=== PATIENT | female | born 1960 | race Caucasian/White ===

== ENCOUNTER 2017-01-14 12:00 | Emergency (ER) | payer OTHER ==
[~2017-01-14] VITALS: Ht 157.5 cm; Wt 67.0 kg
[2017-01-14 12:02] VITALS: Ht 157.5 cm; Wt 67.0 kg
[2017-01-14] MEDS ORDERED: KETOROLAC 30 MG INJ IM STA (12:53)
--- NOTE | 2017-01-14 12:53 | ERD ---
ER Documentation Chief Complaint Date/Time DATE: 01/14/17 TIME: 12:48 Chief Complaint Complains of left leg pain x 1 week HPI 56-year-old female who presents to the emergency room for left leg pain for about a week. Pain was described as sharp/achy with a rate of 10/10 and worse on movement. Patient also stated that she has difficulty walking due to her left leg pain. Stated it is more located to her left femoral area. Denies headache, loss of consciousness, dizziness, blurry vision, changes in vision, photophobia, facial pain, ear pain, throat pain, difficulty swallowing, neck pain, shoulder pain, chest pain, cough, hemoptysis, abdominal pain, back pain, loss of appetite, nausea, vomiting, hematochezia, diarrhea, constipation, urinary symptoms, , the possibility of being , bladder and bowel incontinences, injury, falls, direct trauma, numbness or tingling sensation, difficulty walking, recent travel, recent exposure to illness, recent antibiotic use in the last 3 months, fever, chills. Allergy: Codeine. PMH: Asthma, high cholesterol, hypertension. Family medical history: Denies. Medications: Advair Diskus. Surgery: . Primary Social History: Not working at this time. Denies smoking, use of alcohol, use of illegal drugs. ROS All systems reviewed and are negative except as per history of present illness. Allergies Allergies: Coded Allergies: codeine (Verified Allergy, Intermediate, rash and vomiting, 01/14/17) PMhx/Soc Medical and Surgical Hx: pt denies Medical Hx, pt denies Surgical Hx Physical Exam Vitals Vital Signs Date Time Temp Pulse Resp B/P Pulse Ox O2 Delivery O2 Flow Rate FiO2 01/14/17 12:02 70 20 123/60 98 Physical Exam CONSTITUTIONAL: Well-appearing; well-nourished; in no apparent distress. HEAD: Normocephalic; atraumatic. EYES: Conjunctiva clear, sclera non-icteric, EOM intact. PERRL Ears: Hearing intact. EACs clear, TMs non-bulging, non-inflamed, translucent & mobile, ossicles normal appearance, No obstructions, no erythema, no discharges Nose: No obstructions. No polyps. No external lesions. Mucosa non-inflamed. No external lesions, septum and turbinates normal. No rhinorrhea. No discharges. Frontal sinus is non-tender to palpation. Maxillary sinus is non-tender to palpation. MOUTH: Moist mucous membranes, no lesion, no obstructions, no vesicles, no thrush, patent airway Throat: Uvula in midline. Right tonsil is +1 with no erythema, no exudate. Left tonsil is +1 with no erythema, no exudate. Tolerating secretions well. Good gag reflex. Patent airway. Neck: Supple, without lesions, bruits, or adenopathy. No mass. Thyroid non- enlarged and non-tender to palpation. CHEST: Symmetrical chest. Respirations even and not labored. No retractions noted. CARDIOVASCULAR: Normal S1, S2. RRR. No murmurs, gallops. RESPIRATORY: Normal chest excursion with respiration; breath sounds clear and equal bilaterally; no wheezes, rhonchi, or rales. Breathing even and unlabored. Speaking in clear, full, and complete sentences w/ ease. ABDOMEN: Normal bowel sounds normal. Soft, round, non-distended, non-guarding, no tenderness, no rebound, no organomegaly, no masses, no pulsating abdominal mass. No hernia. No peritoneal signs. : No CVA tenderness. BACK: Symmetrical shoulder. Spine is midline without deformity, tenderness. No evidence of trauma or deformity. PELVIS: Stable pelvis. No evidence of trauma or deformity. MUSCULOSKELETAL: Normal gait and station. No misalignment, asymmetry, crepitation, defects, tenderness, masses, effusions, decreased range of motion, instability, atrophy or abnormal strength or tone in the head, neck, spine, ribs , pelvis or extremities except left femoral area has pain on palpation to anterior and posterior without obvious swelling/deformity. Bilateral hips are stable with good range of motion. Bilateral knees are unremarkable. Bilateral ankle and foot are unremarkable. Good and full range of motion of neck and spine without difficulty/discomfort. No calf tenderness. NEUROVASCULAR: Distal pulses are present. Pedal pulse are present, equal, and normal. Capillary refills are < 2 seconds. NEUROLOGIC: Alert and oriented x4. Speaks full and clear sentences. Cranial Nerves II-XII normal. Sensation to pain, touch, and proprioception normal. Grossly unremarkable. No neurologic deficits. Romberg test is negative. PSYCHOLOGICAL: The patients mood and manner are appropriate. No hallucinations , delusions. Not SI. Not HI. Has the capacity to decide for self SKIN: Normal for age and ethnicity; warm; dry; good turgor; no apparent lesions or exudates. No rashes, hives, discoloration. Intact. Results 24 hrs Current Medications Medications (Trade) Dose Ordered Sig/Levi Route PRN Reason Start Time Stop Time Status Last Admin Dose Admin Ketorolac Tromethamine (Toradol) 30 mg ONCE STAT IM 01/14/17 12:53 01/14/17 12:55 DC 01/14/17 13:16 Procedures/MDM Examination: Please see physical examination. Disease process, medical treatment was explained to the patient and family member. They verbalized understanding and agreed with the medical treatment, and follow-up care. Radiology: X-ray of left femur Impression: No acute osseous abnormality. Benign sclerotic lesion of the distal femur most likely representing a benign chondroid lesion versus less likely a chronic bone infarct. Ultrasound of lower extremity venous left lower extremity. Impression: No sonographic evidence for deep venous thrombosis in the left lower extremity. Treatment: Toradol IM. Re-evaluation: Denies pain. Consultation: None. Differential diagnosis: Fracture versus dislocation versus contusion versus sprain versus sciatica Medical decision makin-year-old female who presents to the emergency room for left leg pain for about a week. Pain was described as sharp/achy with a rate of 10/10 and worse on movement. Patient also stated that she has difficulty walking due to her left leg pain. Stated it is more located to her left femoral area. Patient's complaint, patient's history about her complaint, my physical findings, diagnostic test results are consistent with my final diagnosis of left leg pain, sciatica. Medications prescribed are the following: Flexeril. Patient and family member are made aware of the side effects and adverse reactions of the medications prescribed. Instructed on when to seek emergent and medical attention in case allergic/anaphylactic reactions or severe side effects and or adverse reactions to medications. Patient and family member verbalized understanding. Patient instructed Instructed to follow-up with his PCP in 24-48 hours. Instructed to Call 911 for chest pain, shortness of breath. Advised to come back here in ED as soon as possible for severity of symptoms which includes but not limited to: any new symptoms; shortness of breath/difficulty of breathing; cardiovascular changes; severe gastrointestinal symptoms; signs and symptoms of bleeding and or infection; signs of compartment syndrome/neurovascular changes; neurological changes/deficits. Patient and family member verbalized understanding. Upon discharge, patient is alert and oriented x 4, speaks full and clear sentences, denies pain, has no neurological deficits, has no neurovascular deficits, difficulty of breathing. Breathing even and unlabored. Lung sounds are clear to auscultation. Not in distress. Appears comfortable. Ambulatory with steady gait. Appears satisfied with care provided here in ED. Departure Diagnosis: Primary Impression: Pain of left leg Condition: Good Additional Instructions: Patient instructed Instructed to follow-up with his PCP in 24-48 hours. Instructed to Call 911 for chest pain, shortness of breath. Advised to come back here in ED as soon as possible for severity of symptoms which includes but not limited to: any new symptoms; shortness of breath/difficulty of breathing; cardiovascular changes; severe gastrointestinal symptoms; signs and symptoms of bleeding and or infection; signs of compartment syndrome/neurovascular changes; neurological changes/deficits. Patient and family member verbalized understanding. MERCY THORNTON Jan 14, 2017 12:53
--- NOTE | 2017-01-14 13:23 | RADRPT ---
PROCEDURE: XR Femur. CLINICAL INDICATION: Generalized pain TECHNIQUE: AP and lateral views of the left femur were obtained. COMPARISON: No prior studies are available for comparison. FINDINGS: There is normal mineralization and alignment. No fracture or osseous lesion is identified. There are normal joints without evidence of arthritis or effusion. There is a small, well-defined sclerotic l esion of the distal femoral metadiaphysis most likely representing a benign chondroid lesion or less likely a bone infarct. The soft tissues are unremarkable. IMPRESSION: 1. No acute osseous abnormality. 2. Benign sclerotic lesion of the distal femur most likely representing a benign chondroid lesion v ersus less likely a chronic bone infarct. RPTAT: QQ .Shaun Alanis MD, MD Date Time Electronically viewed and signed by .Shaun Alanis MD, MD on 01/14/2017 13:23 .d/
--- NOTE | 2017-01-14 14:27 | RADRPT ---
PROCEDURE: US Lower extremity Venous. CLINICAL INDICATION: Rule out DVT TECHNIQUE: Multiple sonographic images of the left lower extremity deep venous system was obtained utilizing grayscale, color-flow, compressive sonography and doppler imaging with augmentation. The images were reviewed on a PACS workstation. COMPARISON: None. FINDINGS: There is normal compressibility and flow within the left common femoral, deep femoral, superficial f emoral and popliteal veins. The deep veins the calf were incompletely visualized. IMPRESSION: No sonographic evidence for deep venous thrombosis in the left lower extremity. Physician Trevor Date Time Electronically viewed and signed by Physician Trevor on 01/14/2017 14:22 ML/
[2017-01-14] MEDS ORDERED: CYCL-319 PO (15:48)
[2017-01-14] MEDS ORDERED: IBUP-1542 PO (15:54)
== END 2017-01-14 16:02 | disposition home or self-care (01) ==
LOC: FTE 12:00
DX: M79.662 Pain in left lower leg (principal); J45.909 Unspecified asthma, uncomplicated; I10 Essential (primary) hypertension
CPT/HCPCS: 73550; 93971; 96372; J1885; Z7502

== ENCOUNTER 2017-04-11 17:04 | Emergency (ER) | payer OTHER ==
[~2017-04-11] VITALS: Ht 157.5 cm; Wt 67.0 kg
[~2017-04-11 17:04] MED LIST: CYCL-319 PO; IBUP-1542 PO
[2017-04-11 17:11] VITALS: Ht 157.5 cm; Wt 67.0 kg
--- NOTE | 2017-04-11 21:13 | ERA ---
ER Documentation Chief Complaint Date/Time DATE: 04/11/17 TIME: 21:13 Chief Complaint Dizziness HPI The patient is a 56-year-old female, presenting to the ER because of dizziness that began about 3 AM today, she feels as if the room is spinning, complains of nausea but no vomiting and as if her left face is numb for 1 day. She denies fever, chills, syncope, near syncope, seizure, facial pain, neck pain, chest pain, dyspnea, abdominal pain, vomiting, dysuria, diarrhea. She does not smoke nor drink Past medical history: Dyslipidemia Past surgical history: 3 , bilateral carpal tunnel surgery ROS All systems reviewed and are negative except as per history of present illness. Medications Home Meds Active Scripts Ondansetron (Ondansetron Odt) 4 Mg Tab.rapdis, 4 MG PO Q6H Y for NAUSEA AND/OR VOMITING, #10 TAB Prov:TREVIN HUGGINS MD 04/11/17 Meclizine Hcl* (Meclizine Hcl*) 25 Mg Tablet, 25 MG PO TID, #14 TAB Prov:TREVIN HUGGINS MD 04/11/17 Ibuprofen* (Motrin*) 600 Mg Tab, 600 MG PO Q6H Y for PAIN AND OR ELEVATED TEMP, #30 TAB Prov:MERCY THORNTON 01/14/17 Cyclobenzaprine Hcl* (Cyclobenzaprine Hcl*) 10 Mg Tablet, 10 MG PO BID Y for PAIN, #15 TAB Prov:MERCY THORNTON F 01/14/17 Allergies Allergies: Coded Allergies: codeine (Verified Allergy, Intermediate, rash and vomiting, 01/14/17) Physical Exam Vitals Vital Signs Date Time Temp Pulse Resp B/P Pulse Ox O2 Delivery O2 Flow Rate FiO2 04/11/17 21:40 98.0 86 17 101/65 Room Air 04/11/17 17:11 98.5 61 18 139/64 99 Physical Exam Const: No acute distress. Head: Atraumatic. Eyes: Normal Conjunctiva. ENT: Normal External Ears, Nose and Mouth. Neck: Full range of motion. No meningismus. Resp: Clear to auscultation bilaterally. Cardio: Regular rate and rhythm. Abd: Soft, non distended, normal bowel sounds, non tender. Skin: No petechiae or rashes. Back: No midline or flank tenderness. Ext: No cyanosis, or edema. Neur: Awake and alert. No focal deficit Psych: Normal Mood and Affect. Result Diagram: 04/11/17212404/11/172124 Results 24 hrs Laboratory Tests Test 04/11/17 21:25 White Blood Count 9.110^3/ul Red Blood Count 4.4810^6/ul Hemoglobin 12.4g/dl Hematocrit 37.9% Mean Corpuscular Volume 84.6fl Mean Corpuscular Hemoglobin 27.7pg Mean Corpuscular Hemoglobin Concent 32.7g/dl Red Cell Distribution Width 13.7% Platelet Count 15614^3/UL Mean Platelet Volume 10.6fl Neutrophils % 56.2% Lymphocytes % 25.1% Monocytes % 7.5% Eosinophils % 10.2% Basophils % 0.7% Nucleated Red Blood Cells % 0.0/100WBC Neutrophils # 5.110^3/ul Lymphocytes # 2.310^3/ul Monocytes # 0.710^3/ul Eosinophils # 0.910^3/ul Basophils # 0.110^3/ul Nucleated Red Blood Cells # 0.010^3/ul Prothrombin Time 12.3Sec Prothrombin Time Ratio 1.0 INR International Normalized Ratio 0.91 Activated Partial Thromboplast Time 26.4Sec Sodium Level 142mmol/L Potassium Level 3.3mmol/L Chloride Level 102mmol/L Carbon Dioxide Level 26mmol/L Anion Gap 17 Blood Urea Nitrogen 16mg/dl Creatinine 0.63mg/dl Glucose Level 104mg/dl Calcium Level 9.9mg/dl Current Medications Medications (Trade) Dose Ordered Sig/Levi Route PRN Reason Start Time Stop Time Status Last Admin Dose Admin Ondansetron HCl (Zofran Inj) 4 mg ONCE STAT IV 04/11/17 21:32 04/11/17 21:34 DC 04/11/17 21:51 Meclizine HCl (Antivert) 25 mg ONCE ONCE PO 04/11/17 22:00 04/11/17 22:01 DC 04/11/17 21:51 Potassium Chloride (Klor-Con 20) 20 meq ONCE STAT PO 04/11/17 22:14 04/11/17 22:21 DC 04/11/17 22:36 Procedures/[place] [id number] Radiology Main Line: [phone] DIAGNOSTIC IMAGING REPORT Patient: PHILL MONGE : 1960 Age: 56 Sex: F MR #: [id number] DOS: 04/11/172131 Ordering MD: TREVIN HUGGINS MD Location: E/R Room/Bed: PROCEDURE: CT Head without. CLINICAL INDICATION: Headache. TECHNIQUE: The study was performed utilizing a multi-slice, multidetector CT scanner. Direct spiral 1 mm axial sections were obtained through the head without the use of intravenous contrast material. 1 or more of the following dose reduction techniques were utilized: Automated exposure control, adjustment of the mA and/or kV according to patient's size, iterative reconstruction technique. Coronal and sagittal reformations were obtained. The images were reviewed on a PACS workstation. RADIATION DOSE: CTDIvol: 43.9 mGy DLP: 630.2 mGy-cm COMPARISON: No prior studies are available for comparison. FINDINGS: There is no intracranial hemorrhage, extra-axial fluid collection, mass lesion, midline shift or hydrocephalus. The ventricles, sulci and cisterns are within normal limits. The white matter is unremarkable. The castrejon-white matter differentiation is preserved. The basal cisterns are patent. The midline structures are intact. The orbits, calvarium and extracranial soft tissues are normal in appearance. The visualized paranasal sinuses, mastoid air cells and middle ear cavities are normally aerated. There is pneumatization of the bilateral petrous apices without evidence of inflammatory changes, normal variant. IMPRESSION: 1. No acute intracranial abnormality. No intracranial hemorrhage, extra-axial fluid collection, mass lesion or hydrocephalous. RPTAT: HGAS .Chavo Alonzo MD, Date Time Electronically viewed and signed by .Chavo Alonzo MD, on 04/11/2017 22: 19 .S/ CC: TREVIN HUGGINS MD EKG: Read by emergency physician Rate/Rhythm: Sinus bradycardia 50 beats/min QRS, ST, T-waves: No ST elevation, no T inversion Impression: Abnormal EKG MEDICAL MAKING DECISION: The patient is a 56-year-old female, presenting with acute dizziness most likely due to acute benign positional vertigo, acute hypokalemia. She was treated with Antivert 25 mg p.o. for acute dizziness, Zofran 4 mg IV for nausea and potassium chloride 20 mEq p.o. for low potassium with good response. The differential diagnoses considered include but are not limited to central causes such as bradycardia arrhythmia, hypothyroidism, cerebellar infarct, cerebellar hemorrhage, cerebellar tumor, acoustic neuroma, peripheral causes such as benign positional vertigo, labyrinthitis, medication, Meniere's disease. Departure Diagnosis: Primary Impression: Dizziness Additional Impression: Hypokalemia Condition: Good Comments She was discharged with Antivert and Zofran ODT I discussed the findings with the patient. I advised the patient to follow-up with the primary physician in about 1-2 days, sooner if needed and return if any concern. The patient's blood pressure was elevated (>120/80) but appears stable without evidence of hypertension emergency or urgency. The patient was counseled about the risks of hypertension and urged to pursue outpatient monitoring and therapy within a week with their primary care physician. TREVIN HUGGINS MD Apr 11, 2017 21:13
[2017-04-11] MEDS ORDERED: ONDANSETRON 4 MG INJ IV STA (21:32)
[2017-04-11 21:42] LABS: ADD SCAN DIFF NO
[2017-04-11 21:44] LABS: BASOPHIL # 0.1 10^3/ul (0.0-0.1); BASOPHILS % 0.7 % (0.0-2.0); EOSINOPHILS # 0.9 10^3/ul (0.0-0.5); EOSINOPHILS % 10.2 % (0.0-7.0); HEMATOCRIT 37.9 % (37.0-47.0); HEMOGLOBIN 12.4 g/dl (12.0-16.0); LYMPHOCYTES # 2.3 10^3/ul (0.8-2.9); LYMPHOCYTES % 25.1 % (15.0-51.0); MEAN CORPUSCULAR HEMOGLOBIN 27.7 pg (29.0-33.0); MEAN CORPUSCULAR HGB CONC 32.7 g/dl (32.0-37.0); MEAN CORPUSCULAR VOLUME 84.6 fl (82.0-101.0); MEAN PLATELET VOLUME 10.6 fl (7.4-10.4); MONOCYTE # 0.7 10^3/ul (0.3-0.9); MONOCYTES % 7.5 % (0.0-11.0); NEUTROPHIL # 5.1 10^3/ul (1.6-7.5); NEUTROPHILS % 56.2 % (39.0-77.0); PLATELET COUNT 263 10^3/UL (140-415); RED BLOOD COUNT 4.48 10^6/ul (4.20-5.40); RED CELL DISTRIBUTION WIDTH 13.7 % (11.5-14.5); WHITE BLOOD COUNT 9.1 10^3/ul (4.8-10.8)
[2017-04-11 21:59] LABS: INR 0.91; PROTIME 12.3 Sec (12.2-14.2)
[2017-04-11 22:00] LABS: PARTIAL THROMBOPLASTIN TIME 26.4 Sec (25.0-35.0)
[2017-04-11] MEDS ORDERED: MECLIZINE 12.5 MG TAB PO ONE (22:00)
[2017-04-11 22:03] LABS: CALCIUM 9.9 mg/dl (8.4-10.2); CREATININE 0.63 mg/dl (0.44-1.00); POTASSIUM 3.3 mmol/L (3.5-5.1)
[2017-04-11] MEDS ORDERED: POTASSIUM CHLORIDE (SR) 20 MEQ TAB PO STA (22:14)
--- NOTE | 2017-04-11 22:20 | RADRPT ---
PROCEDURE: CT Head without. CLINICAL INDICATION: Headache. TECHNIQUE: The study was performed utilizing a multi-slice, multidetector CT scanner. Direct spira l 1 mm axial sections were obtained through the head without the use of intravenous contrast materia l. 1 or more of the following dose reduction techniques were utilized: Automated exposure control, adjustment of the mA and/or kV according to patient's size, iterative reconstruction technique. Co wali and sagittal reformations were obtained. The images were reviewed on a PACS workstation. RADIATION DOSE: CTDIvol: 43.9 mGyDLP: 630.2 mGy-cm COMPARISON: No prior studies are available for comparison. FINDINGS: There is no intracranial hemorrhage, extra-axial fluid collection, mass lesion, midline shift or hyd rocephalus. The ventricles, sulci and cisterns are within normal limits. The white matter is unrem arkable. The castrejon-white matter differentiation is preserved. The basal cisterns are patent. The m idline structures are intact. The orbits, calvarium and extracranial soft tissues are normal in mateo earance. The visualized paranasal sinuses, mastoid air cells and middle ear cavities are normally ae rated. There is pneumatization of the bilateral petrous apices without evidence of inflammatory lozada ges, normal variant. IMPRESSION: 1. No acute intracranial abnormality. No intracranial hemorrhage, extra-axial fluid collection, ma ss lesion or hydrocephalous. RPTAT: HGAS .Chavo Alonzo MD, Date Time Electronically viewed and signed by .Chavo Alonzo MD, MD on 04/11/2017 22:19 .S/
[2017-04-11] MEDS ORDERED: ONDA4TAB14 PO (22:39)
[2017-04-11] MEDS ORDERED: MECL-77 PO (22:39)
[2017-04-11 23:16] VITALS: BP 124/71; PULSE 89; RESP 17; TEMP 98.1
== END 2017-04-11 23:17 | disposition home or self-care (01) ==
LOC: E/R 17:04
DX: R42 Dizziness and giddiness (principal); R40.2252 Coma scale, best verbal response, oriented, at arrival to emergency department; E87.6 Hypokalemia; R11.0 Nausea; R40.2142 Coma scale, eyes open, spontaneous, at arrival to emergency department; R40.2362 Coma scale, best motor response, obeys commands, at arrival to emergency department
CPT/HCPCS: 70450; 80048; 85025; 85610; 85730; 93005; J2405; Z7610; 36415; 96374

== ENCOUNTER 2017-06-30 13:30 | Emergency (ER) | payer OTHER ==
[~2017-06-30] VITALS: Ht 152.4 cm; Wt 65.5 kg
[~2017-06-30 13:30] MED LIST changes: -CYCL-319 PO; +MECL-77 PO; +ONDA4TAB14 PO
[2017-06-30 13:33] VITALS: Ht 152.4 cm; Wt 65.5 kg
[2017-06-30] MEDS ORDERED: ACETAMINOPHEN 325 MG TAB PO STA (15:03)
[2017-06-30] MEDS ORDERED: SOD CHLORIDE 0.9% 1,000 ML IV STA (15:03)
[2017-06-30] MEDS ORDERED: ONDANSETRON 4 MG INJ IV STA (15:03)
[2017-06-30] MEDS ORDERED: MECLIZINE 12.5 MG TAB PO ONE (15:30)
[2017-06-30 15:32] LABS: BASOPHIL # 0.1 10^3/ul (0.0-0.1); BASOPHILS % 0.5 % (0.0-2.0); EOSINOPHILS % 10.4 % (0.0-7.0); HEMATOCRIT 40.8 % (37.0-47.0); HEMOGLOBIN 13.2 g/dl (12.0-16.0); LYMPHOCYTES # 2.2 10^3/ul (0.8-2.9); LYMPHOCYTES % 24.5 % (15.0-51.0); MEAN CORPUSCULAR HEMOGLOBIN 27.5 pg (29.0-33.0); MEAN CORPUSCULAR HGB CONC 32.4 g/dl (32.0-37.0); MEAN PLATELET VOLUME 10.5 fl (7.4-10.4); MONOCYTE # 0.7 10^3/ul (0.3-0.9); MONOCYTES % 7.4 % (0.0-11.0); PLATELET COUNT 275 10^3/UL (140-415); RED CELL DISTRIBUTION WIDTH 13.6 % (11.5-14.5); WHITE BLOOD COUNT 9.1 10^3/ul (4.8-10.8)
[2017-06-30 15:51] LABS: CALCIUM 9.9 mg/dl (8.4-10.2); CREATININE 0.7 mg/dl (0.44-1.00); POTASSIUM 3.9 mmol/L (3.5-5.1)
[2017-06-30] MEDS ORDERED: MECL12.574 PO (16:46)
--- NOTE | 2017-06-30 16:58 | ERD ---
ER Documentation Chief Complaint Date/Time DATE: 06/30/17 TIME: 16:48 Chief Complaint pt bib self with c/o bilatteral ear pain that causes dizziness HPI Patient is a 56-year-old female with a history of hyperlipidemia and bilateral carpal tunnel surgery who presented to the emergency department for concerns of bilateral ear pain and dizziness. Patient states that her symptoms have been ongoing for the last 4 days. Patient describes her left ear to be hurting greater than her right ear. Patient reports episodic dizziness. She states her dizziness is worse with positional changes. She does report room spinning sensation. She states episodes of dizziness lasts less than a minute. Patient does report nausea however she denies any vomiting. She was seen here for similar symptoms approximately 3 months ago. Patient denies any hearing loss, diplopia or dysphagia. Patient denies any fevers, chills, chest pain, shortness of breath, abdominal pain, dysuria or diarrhea. Patient denies any drug or alcohol use.Patient has not followed up with an ENT specialist. ROS All systems reviewed and are negative except as per history of present illness. Medications Home Meds Active Scripts Meclizine Hcl* (Antivert*) 12.5 Mg Tab, 12.5 MG PO Q6H Y for DIZZINESS, #20 TAB Prov:FORTUNATO MILLARD PA-C 06/30/17 Ondansetron (Ondansetron Odt) 4 Mg Tab.rapdis, 4 MG PO Q6H Y for NAUSEA AND/OR VOMITING, #10 TAB Prov:TREVIN HUGGINS MD 04/11/17 Meclizine Hcl* (Meclizine Hcl*) 25 Mg Tablet, 25 MG PO TID, #14 TAB Prov:TREVIN HUGGINS MD 04/11/17 Ibuprofen* (Motrin*) 600 Mg Tab, 600 MG PO Q6H Y for PAIN AND OR ELEVATED TEMP, #30 TAB Prov:PASJESSICA ZAFARAR F 01/14/17 Allergies Allergies: Coded Allergies: codeine (Verified Allergy, Intermediate, rash and vomiting, 01/14/17) PMhx/Soc History of Surgery: Yes (C SECTION, CARPAL TUNNEL ) Anesthesia Reaction: No Hx Neurological Disorder: No Hx Respiratory Disorders: No Hx Cardiac Disorders: No Hx Psychiatric Problems: No Hx Miscellaneous Medical Probl: Yes (high cholesterol) Hx Alcohol Use: No Hx Substance Use: No Hx Tobacco Use: No Smoking Status: Never smoker Physical Exam Vitals Vital Signs Date Time Temp Pulse Resp B/P Pulse Ox O2 Delivery O2 Flow Rate FiO2 06/30/17 13:33 98.3 60 16 111/57 97 Physical Exam GENERAL: Well-developed, well-nourished female. Appears in no acute distress. Eating in full sentences HEAD: Normocephalic, atraumatic. No deformities or ecchymosis. EYE: Pupils equal, round, and reactive to light. EOMs intact. No conjunctival erythema. No eye discharge. ENT: External ear without any masses or tenderness. Auditory canals clear bilaterally. TM visualized bilaterally, non-erythematous, non-bulging. Nasal mucosa pink with no discharge. Oropharynx is pink without any tonsillar erythema or exudates. No uvula deviation. No kissing tonsils. Tender palpation of bilateral mastoid processes NECK: Supple. No meningismus. Normal ROM of the neck. LUNG: Clear to auscultation bilaterally. No rhonchi, wheezing, rales or coarse breath sounds. HEART: Regular rate and rhythm. No murmurs, rubs or gallops. BACK: No midline tenderness. EXTREMITES: Equal pulses bilaterally. No peripheral clubbing, cyanosis or edema. No unilateral leg swelling. NEUROLOGIC: Alert and oriented to person, place and time. Cranial nerves II through XII intact. Moving all four extremities. 5/5 strength in all extremities. Normal speech. Steady gait. No pronator drift. SKIN: Normal color. Warm and dry. No rashes or lesions. Result Diagram: 06/30/17 1515 06/30/17 1515 Results 24 hrs Laboratory Tests Test 06/30/17 15:15 White Blood Count 9.110^3/ul Red Blood Count 4.8010^6/ul Hemoglobin 13.2g/dl Hematocrit 40.8% Mean Corpuscular Volume 85.0fl Mean Corpuscular Hemoglobin 27.5pg Mean Corpuscular Hemoglobin Concent 32.4g/dl Red Cell Distribution Width 13.6% Platelet Count 13347^3/UL Mean Platelet Volume 10.5fl Neutrophils % 57.0% Lymphocytes % 24.5% Monocytes % 7.4% Eosinophils % 10.4% Basophils % 0.5% Nucleated Red Blood Cells % 0.0/100WBC Neutrophils # (Manual) 5.210^3/ul Lymphocytes # 2.210^3/ul Monocytes # 0.710^3/ul Eosinophils # 1.010^3/ul Basophils # 0.110^3/ul Nucleated Red Blood Cells # 0.010^3/ul Sodium Level 140mmol/L Potassium Level 3.9mmol/L Chloride Level 101mmol/L Carbon Dioxide Level 30mmol/L Anion Gap 13 Blood Urea Nitrogen 15mg/dl Creatinine 0.70mg/dl Glucose Level 110mg/dl Calcium Level 9.9mg/dl Current Medications Medications (Trade) Dose Ordered Sig/Levi Route PRN Reason Start Time Stop Time Status Last Admin Dose Admin Sodium Chloride (NS) 1,000 ml @ 1,000 mls/hr Q1H STAT IV 06/30/17 15:03 06/30/17 16:02 DC 06/30/17 15:24 Acetaminophen (Tylenol Tab) 650 mg ONCE STAT PO 06/30/17 15:03 06/30/17 15:05 DC 06/30/17 15:23 Ondansetron HCl (Zofran Inj) 4 mg ONCE STAT IV 06/30/17 15:03 06/30/17 15:05 DC 06/30/17 15:23 Meclizine HCl (Antivert) 25 mg ONCE ONCE PO 06/30/17 15:30 06/30/17 15:31 DC 06/30/17 15:23 Procedures/MDM ED COURSE: The patient was stable throughout ED course. I kept the patient and/or family informed of laboratory and diagnostic imaging results throughout the ED course. MEDICATIONS GIVEN: IV fluids, Zofran, meclizine, tylenol Patient tolerated medication well with no adverse reactions. She reported improvement in symptoms. MEDICAL DECISION MAKING: Patient is 56-year-old female who presents emergency department for concerns of dizziness and bilateral ear pain 4 days. Vital signs were reviewed. Patient was afebrile. Patient was not hypoxic. Patient states that the room is spinning. The dizziness is worse with positional changes and movement. The patient denied hearing loss, diplopia or dysphagia. Neuro exam was normal. Blood work was obtained. CBC showed no evidence of systemic infection or severe anemia. CMP showed no evidence of electrolyte abnormalities, severe acidosis, alkalosis, renal failure, or liver disease. Review of the patient's previous chart shows that patient had a CT scan of her head completed on 04-11-17. The CT scan was negative. I do not feel that repeat imaging studies needed at this time. Patient did report significant improvement dizziness after taking meclizine and Zofran. At this time, the patient's presentation is most consistent with benign proximal paroxysmal positional vertigo. Unable to rule out labyrinthitis at this time. Low suspicion for intracranial hemorrhage, cerebral infarct, intracranial mass, vestibular neuritis, TMJ dysfunction, ear foreign body or acute otitis media. She was provided with an ENT referral information. Patient was advised that she will need to follow-up with an ENT specialist for further examination and workup. PRESCRIPTIONS: Meclizine Patient does report having a prescription of Zofran at home. DISCHARGE: At this time, patient is stable for discharge and outpatient management. I have instructed the patient to follow-up with his/her primary care physician in 1-2 days. If symptoms persist, patient may need to see a specialist for further examinations and testing. I have instructed the patient to promptly return to the ER at any time for any new or worsening symptoms including increased increased pain, fever, nausea, vomiting, numbness, weakness, slurred speech, LOC. The patient and/or family expressed understanding of and agreement with this plan. All questions were answered. Home care instructions were provided. Departure Diagnosis: Primary Impression: Vertigo Additional Impression: Ear pain Laterality: bilateral Qualified Code: H92.03 - Otalgia of both ears Condition: Stable Patient Instructions: Inner Ear Problems: Causes of Dizziness (Vertigo) Referrals: [facility] YOU HAVE RECEIVED A MEDICAL SCREENING EXAM AND THE RESULTS INDICATE THAT YOU DO NOT HAVE A CONDITION THAT REQUIRES URGENT TREATMENT IN THE EMERGENCY DEPARTMENT. FURTHER EVALUATION AND TREATMENT OF YOUR CONDITION CAN WAIT UNTIL YOU ARE SEEN IN YOUR DOCTORS OFFICE WITHIN THE NEXT 1-2 DAYS. IT IS YOUR RESPONSIBILITY TO MAKE AN APPOINTMENT FOR [facility]ARE. IF YOU HAVE A PRIMARY DOCTOR --you should call your primary doctor and schedule an appointment IF YOU DO NOT HAVE A PRIMARY DOCTOR YOU CAN CALL OUR PHYSICIAN REFERRAL HOTLINE AT IF YOU CAN NOT AFFORD TO SEE A PHYSICIAN YOU CAN CHOSE FROM THE FOLLOWING [facility] [address] [facility]. [facility] [address] [facility] [address] [facility]. [facility] [address] [facility]. [facility] [address] [facility]. [facility]. [address] [facility]. [facility] YOU HAVE RECEIVED A MEDICAL SCREENING EXAM AND THE RESULTS INDICATE THAT YOU DO NOT HAVE A CONDITION THAT REQUIRES URGENT TREATMENT IN THE EMERGENCY DEPARTMENT. FURTHER EVALUATION AND TREATMENT OF YOUR CONDITION CAN WAIT UNTIL YOU ARE SEEN IN YOUR DOCTORS OFFICE WITHIN THE NEXT 1-2 DAYS. IT IS YOUR RESPONSIBILITY TO MAKE AN APPOINTMENT FOR FOLOW-UP CARE. IF YOU HAVE A PRIMARY DOCTOR --you should call your primary doctor and schedule and appointment IF YOU DO NOT HAVE A PRIMARY DOCTOR YOU CAN CALL OUR PHYSICIAN REFERRAL HOTLINE AT . IF YOU CAN NOT AFFORD TO SEE A PHYSICIAN YOU CAN CHOSE FROM THE FOLLOWING [facility]STIT[facility]: [facility] [address] [place] [address] [facility] [address] [place], [place] [id number] [place] [address] [address] [place] [address] Additional Instructions: Call your primary care doctor TOMORROW for an appointment during the next 1-2 days.See the doctor sooner or return here if your condition worsens before your appointment time. You will need to follow-up with an ENT specialist. See referral information. FORTUNATO MILLARD PA-C Jun 30, 2017 16:58
[2017-06-30 17:01] VITALS: BP 117/58; PULSE 56; RESP 16; TEMP 97.9
== END 2017-06-30 17:02 | disposition home or self-care (01) ==
LOC: FTE 13:30
DX: R42 Dizziness and giddiness (principal)
CPT/HCPCS: 36415; 80048; 85025; 96374; J2405; J7030; Z7502; Z7610

== ENCOUNTER 2018-04-19 02:20 | Emergency (ER) | END 2018-04-19 07:00 | disposition home or self-care (01) ==